=== PATIENT | female | born 1980 | race Caucasian/White ===

== ENCOUNTER 2025-01-15 11:27 | Emergency (ER) | payer OTHER ==
[~2025-01-15] VITALS: Ht 170.2 cm; Wt 115.0 kg
[2025-01-15 11:41] VITALS: O2SAT 96
[2025-01-15 13:03] VITALS: BP 152/89; PULSE 20; RESP 22; TEMP 36.8; O2SAT 97
== END 2025-01-15 13:04 | disposition left against medical advice (07) ==
LOC: ER 11:27
DX: R19.7 Diarrhea, unspecified (principal); F41.9 Anxiety disorder, unspecified; Z79.01 Long term (current) use of anticoagulants; Z76.0 Encounter for issue of repeat prescription; Z86.711 Personal history of pulmonary embolism; M79.7 Fibromyalgia; Z88.0 Allergy status to penicillin
CPT/HCPCS: 99281